=== PATIENT | male | born 1985 | race Two or more races ===

== ENCOUNTER 2024-10-18 10:30 | Inpatient (IN) | payer OTHER ==
[~2024-10-18] VITALS: Ht 61 cm; Wt 111.1 kg
[2024-10-18 14:07] VITALS: BP 134/89
[2024-10-27] MEDS ORDERED: METRONIDAZOLE/SODIUM CHLORIDE 500 MG/100 ML PIGGYBACK IV ONE ×2 (08:36→11:00)
[2024-10-27] MEDS ORDERED: CEFTRIAXONE SODIUM 2,000 MG VIAL ONE (08:36)
[2024-10-27 09:13] LABS: RH POSITIVE
[2024-10-27] MEDS ORDERED: BUPIVACAINE HCL/MPF 0.5% 30ML VIAL ONE (09:23)
[2024-10-27] MEDS ORDERED: CHLORHEXIDINE GLUCONATE 120 ML BOTTLE TOP ONE ×2 (09:23→11:00)
[2024-10-27] MEDS ORDERED: CEFTRIAXONE SODIUM 2,000 MG VIAL IV ONE (11:00)
[2024-10-27] MEDS ORDERED: BUPIVACAINE HCL 30 ML VIAL IJ ONE (11:00)
[2024-10-27] MEDS ORDERED: ACETAMINOPHEN 500 MG GEL..CAP PO SCH (19:53)
[2024-10-27] MEDS ORDERED: ONDANSETRON HCL 2 MG/ML VIAL IV PRN (20:00)
[2024-10-27] MEDS ORDERED: RINGERS SOLUTION,LACTATED 1,000 ML IV SCH (20:00)
[2024-10-27] MEDS ORDERED: MORPHINE SULFATE 4 MG/ML VIAL IV PRN (20:00)
[2024-10-27] MEDS ORDERED: OxyCODONE HCL 5 MG TABLET (ROXICODONE) PO PRN (20:00)
[2024-10-27] MEDS ORDERED: FAMOTIDINE/PF 20 MG/10 ML SYRINGE IV PUSH SCH (21:00)
[2024-10-27] MEDS ORDERED: MORPHINE SULFATE 2 MG/ML CARTRIDGE IV ONE (21:05)
[2024-10-27] MEDS ORDERED: MORPHINE SULFATE 4 MG/ML VIAL IV ONE (21:05)
[2024-10-27] MEDS ORDERED: GABAPENTIN 300 MG CAPSULE PO ONE (22:00)
[2024-10-27 23:09] LABS: BASO % 0.1 % (0.1-1.2); EOS # 0.00 (0.04-0.54); EOS % 0.0 % (0.7-7.0); LYMPH # 1.17 (1.18-3.74); LYMPH % 8.5 % (19.3-53.1); MEAN PLATELET VOLUME 10.40 fl (9.4-12.4); MONO # 1.42 (0.24-0.82); MONO % 10.3 % (4.7-12.5); NEUT # 11.13 (1.56-6.13); NEUT % 80.7 % (34.0-71.1); RED CELL DISTRIBUTION WIDTH 13.5 % (11.6-14.4)
[2024-10-27 23:16] LABS: GLUCOSE FASTING 145.0 mg/dL (65-100); OSMOLALITY SERUM 285.0 MOSM/KG (275-295)
[2024-10-27 23:18] LABS: BUN CREA RATIO 11.0 (7.0-25.0); CREATININE SERUM 0.94 mg/dL (0.70-1.30); GFR 88.88
[2024-10-28] MEDS ORDERED: GABAPENTIN 300 MG CAPSULE PO SCH (01:00)
[2024-10-28 07:57] LABS: BUN CREA RATIO 10.0 (7.0-25.0); CREATININE SERUM 0.7 mg/dL (0.70-1.30); GFR 124.9; GLUCOSE FASTING 108.0 mg/dL (65-100); OSMOLALITY SERUM 280.0 MOSM/KG (275-295)
[2024-10-28 07:58] LABS: BASO % 0.3 % (0.1-1.2); EOS # 0.00 (0.04-0.54); EOS % 0.0 % (0.7-7.0); LYMPH # 1.70 (1.18-3.74); LYMPH % 14.7 % (19.3-53.1); MEAN PLATELET VOLUME 11.00 fl (9.4-12.4); MONO # 1.75 (0.24-0.82); NEUT # 8.10 (1.56-6.13); NEUT % 69.7 % (34.0-71.1); RED CELL DISTRIBUTION WIDTH 13.5 % (11.6-14.4)
[2024-10-28 08:22] LABS: MONO % 15.1 % (4.7-12.5)
[2024-10-28] MEDS ORDERED: LACTOBACILLUS ACIDOPHILUS 1 CAP CAP PO SCH (09:00)
[2024-10-28] MEDS ORDERED: POLYETHYLENE GLYCOL 3350 17 GM BLIST.PACK PO SCH (09:00)
[2024-10-28] MEDS ORDERED: MAGNESIUM CHLORIDE 70 MG TABLET.DR PO SCH (09:00)
[2024-10-28] MEDS ORDERED: HYOSCYAMINE SULFATE 0.125 MG TAB.SUBL SL SCH (09:00)
[2024-10-28 09:24] VITALS: BP 126/80; O2SAT 95
[2024-10-28] MEDS ORDERED: MORPHINE SULFATE 4 MG,MORPHINE SULFATE 2 MG IV PRN (09:30)
[2024-10-28 16:00] VITALS: BP 128/79; O2SAT 95
[2024-10-28] MEDS ORDERED: ENOXAPARIN SODIUM 40 MG/0.4 ML SYRINGE SUBCUTANEO SCH (17:00)
[2024-10-28] MEDS ORDERED: POTASSIUM PHOS,M-BASIC-D-BASIC 15 MM in 0.9 % SODIUM CHLORIDE 250 ML IV ONE (18:15)
[2024-10-28] MEDS ORDERED: MAGNESIUM SULFATE 50% 1,000 MG/2 ML VIAL IV ONE (18:15)
[2024-10-29 00:43] VITALS: BP 118/73; O2SAT 98
[2024-10-29 08:04] VITALS: BP 133/87; O2SAT 96
[2024-10-29 08:15] LABS: BASO % 0.4 % (0.1-1.2); EOS # 0.08 (0.04-0.54); EOS % 0.7 % (0.7-7.0); LYMPH # 1.77 (1.18-3.74); LYMPH % 16.5 % (19.3-53.1); MEAN PLATELET VOLUME 11.20 fl (9.4-12.4); MONO # 1.64 (0.24-0.82); NEUT # 7.16 (1.56-6.13); NEUT % 66.7 % (34.0-71.1); RED CELL DISTRIBUTION WIDTH 14.1 % (11.6-14.4)
[2024-10-29 08:16] LABS: MONO % 15.3 % (4.7-12.5)
[2024-10-29 09:00] LABS: BUN CREA RATIO 8.0 (7.0-25.0); CREATININE SERUM 0.66 mg/dL (0.70-1.30); GFR 133.68; GLUCOSE FASTING 102.0 mg/dL (65-100); OSMOLALITY SERUM 273.0 MOSM/KG (275-295)
[2024-10-29] MEDS ORDERED: NAPH,MB-DB/K PH,MBDB 1 PKT PACKET PO SCH ×2 (09:00→19:10)
[2024-10-29] MEDS ORDERED: POTASSIUM PHOS,M-BASIC-D-BASIC 3 MM/ML VIAL IV NR ×2 (14:00→18:00)
[2024-10-29 16:50] VITALS: BP 127/84; O2SAT 96
[2024-10-30 00:39] VITALS: BP 135/83; O2SAT 100
[2024-10-30 06:42] LABS: BASO % 0.5 % (0.1-1.2); EOS # 0.22 (0.04-0.54); EOS % 2.5 % (0.7-7.0); LYMPH # 1.98 (1.18-3.74); LYMPH % 22.5 % (19.3-53.1); MEAN PLATELET VOLUME 10.40 fl (9.4-12.4); MONO # 1.37 (0.24-0.82); NEUT # 5.15 (1.56-6.13); NEUT % 58.6 % (34.0-71.1); RED CELL DISTRIBUTION WIDTH 13.8 % (11.6-14.4)
[2024-10-30 06:56] LABS: MONO % 15.6 % (4.7-12.5)
[2024-10-30 07:13] LABS: BUN CREA RATIO 8.0 (7.0-25.0); CREATININE SERUM 0.52 mg/dL (0.70-1.30); GFR 176.02; GLUCOSE FASTING 99.0 mg/dL (65-100); OSMOLALITY SERUM 284.0 MOSM/KG (275-295)
[2024-10-30] MEDS ORDERED: MAGNESIUM SULFATE IN WATER 2 GM/50 ML PIGGYBAG IV NR (08:00)
[2024-10-30 08:17] VITALS: BP 118/79; O2SAT 95
[2024-10-30] MEDS ORDERED: PIPERACILLIN/TAZOBACTAM SODIUM 3.375 GM VIAL IV STA (11:14)
[2024-10-30 16:00] VITALS: BP 121/71; O2SAT 97
[2024-10-30] MEDS ORDERED: PIPERACILLIN/TAZOBACTAM SODIUM 3.375 GM VIAL IV SCH (18:00)
[2024-10-31 01:27] VITALS: BP 129/75; O2SAT 98
[2024-10-31 08:00] VITALS: BP 124/78; O2SAT 95
[2024-10-31 08:42] LABS: BASO % 0.7 % (0.1-1.2); EOS # 0.29 (0.04-0.54); EOS % 3.2 % (0.7-7.0); LYMPH # 2.36 (1.18-3.74); LYMPH % 26.2 % (19.3-53.1); MEAN PLATELET VOLUME 10.10 fl (9.4-12.4); MONO # 1.36 (0.24-0.82); NEUT # 4.89 (1.56-6.13); NEUT % 54.2 % (34.0-71.1); RED CELL DISTRIBUTION WIDTH 13.9 % (11.6-14.4)
[2024-10-31 08:54] LABS: MONO % 15.1 % (4.7-12.5)
[2024-10-31 09:08] LABS: ERYTHROCYTE SEDIMENTATION RATE 62 mm/hr (0-15)
[2024-10-31 09:12] LABS: BUN CREA RATIO 8.0 (7.0-25.0); CREATININE SERUM 0.65 mg/dL (0.70-1.30); GFR 136.05; GLUCOSE FASTING 87.0 mg/dL (65-100); OSMOLALITY SERUM 282.0 MOSM/KG (275-295)
[2024-10-31 17:00] VITALS: BP 152/89; O2SAT 95
[2024-10-31] MEDS ORDERED: LINEZOLID 600 MG TABLET PO SCH (17:00)
[2024-10-31] MEDS ORDERED: LACTOBACILLUS ACIDOPHILUS 1 CAP CAP PO SCH (17:00)
[2024-11-01 00:49] VITALS: BP 107/65; O2SAT 96
[2024-11-01 08:00] VITALS: BP 122/80; O2SAT 95
[2024-11-01] MEDS ORDERED: OxyCODONE HCL 5 MG TABLET (ROXICODONE) PO PRN (12:30)
[2024-11-01] MEDS ORDERED: MORPHINE SULFATE 4 MG/ML CARTRIDGE IV PRN (12:30)
[2024-11-01 16:00] VITALS: BP 122/87; O2SAT 96
[2024-11-02 01:28] VITALS: BP 121/78; O2SAT 100
[2024-11-02 08:40] VITALS: BP 125/79; O2SAT 98
[2024-11-02 16:00] VITALS: BP 115/83; O2SAT 95
[2024-11-03 00:52] VITALS: BP 133/77; O2SAT 96
[2024-11-03 07:35] LABS: BASO % 0.8 % (0.1-1.2); EOS # 0.35 (0.04-0.54); EOS % 3.8 % (0.7-7.0); LYMPH # 1.83 (1.18-3.74); LYMPH % 19.9 % (19.3-53.1); MEAN PLATELET VOLUME 10.10 fl (9.4-12.4); MONO # 1.41 (0.24-0.82); NEUT # 5.46 (1.56-6.13); NEUT % 59.3 % (34.0-71.1); RED CELL DISTRIBUTION WIDTH 13.6 % (11.6-14.4)
[2024-11-03 07:41] LABS: MONO % 15.3 % (4.7-12.5)
[2024-11-03 08:00] LABS: ALT/SGPT 73.0 U/L (12-78); AST/SGOT 53.0 U/L (15-37); BILIRUBIN TOTAL 0.59 mg/dL (0.3-1.2); BILIRUBIN,CONJUGATED 0.23 mg/dL (0.0-0.2); BUN CREA RATIO 9.0 (7.0-25.0); CREATININE SERUM 0.82 mg/dL (0.70-1.30); GFR 104.06; GLUCOSE FASTING 87.0 mg/dL (65-100); OSMOLALITY SERUM 275.0 MOSM/KG (275-295)
[2024-11-03 08:34] VITALS: BP 110/73; O2SAT 95
[2024-11-03] MEDS ORDERED: MUPIROCIN 22 GM OINT..GM TUBE NASAL SCH (13:00)
[2024-11-03 17:48] VITALS: BP 133/89; O2SAT 97
== END 2024-11-03 18:52 | disposition home or self-care (01) | DRG 330 ==
LOC: O/R 10-27 05:51 → SURH 10-27 08:45
PROVIDERS: Urology; ADMIT Colon & Rectal Surgery; ATTEND Colon & Rectal Surgery
PROC: 0TQB4ZZ Repair Bladder, Percutaneous Endoscopic Approach (ICD-10-PCS; 2024-10-27)
PROC: 0DJD8ZZ Inspection of Lower Intestinal Tract, Via Natural or Artificial Opening Endoscopic (ICD-10-PCS; 2024-10-27)
PROC: 0W9F4ZZ Drainage of Abdominal Wall, Percutaneous Endoscopic Approach (ICD-10-PCS; 2024-10-27)
PROC: 0T784DZ Dilation of Bilateral Ureters with Intraluminal Device, Percutaneous Endoscopic Approach (ICD-10-PCS; 2024-10-27)
PROC: 0DTN4ZZ Resection of Sigmoid Colon, Percutaneous Endoscopic Approach (ICD-10-PCS; principal; 2024-10-27 08:45)
PROC: 0DBP4ZZ Excision of Rectum, Percutaneous Endoscopic Approach (ICD-10-PCS; 2024-10-27 08:45)
DX: K57.20 Diverticulitis of large intestine with perforation and abscess without bleeding (principal); K55.1 Chronic vascular disorders of intestine; N99.72 Accidental puncture and laceration of a genitourinary system organ or structure during other procedure; N32.1 Vesicointestinal fistula; T81.41XA Infection following a procedure, superficial incisional surgical site, initial encounter; L03.311 Cellulitis of abdominal wall; Y65.8 Other specified misadventures during surgical and medical care

== ENCOUNTER 2024-10-25 08:48 | Day surgery (SDC) | payer OTHER ==
[2024-10-25] MEDS ORDERED: MIDAZOLAM HCL 2 MG/2 ML VIAL IV ONE (12:45)
[2024-10-25] MEDS ORDERED: ONDANSETRON HCL 2 MG/ML VIAL IV ONE (12:45)
[2024-10-25] MEDS ORDERED: DIPHENHYDRAMINE HCL 50 MG/ML VIAL 1ML IV ONE (12:45)
[2024-10-25] MEDS ORDERED: fentaNYL CITRATE 50 MCG/ML AMPUL IV PUSH ONE (12:45)
== END 2024-10-25 13:50 | disposition home or self-care (01) ==
LOC: AMB-ENDOS 08:48
PROVIDERS: ATTEND Colon & Rectal Surgery
DX: D12.8 Benign neoplasm of rectum (principal); D12.0 Benign neoplasm of cecum; D12.5 Benign neoplasm of sigmoid colon; K57.32 Diverticulitis of large intestine without perforation or abscess without bleeding; K57.20 Diverticulitis of large intestine with perforation and abscess without bleeding; R19.4 Change in bowel habit; Z12.11 Encounter for screening for malignant neoplasm of colon

== ENCOUNTER 2024-11-05 14:51 | Emergency (ER) | payer OTHER ==
[~2024-11-05] VITALS: Ht 188 cm; Wt 107.0 kg
[2024-11-05] MEDS ORDERED: MACROBID 100 M100 MG (15:25)
[2024-11-05] MEDS ORDERED: NEURONTIN300 MG PO (15:25)
[2024-11-05] MEDS ORDERED: PERCOCET 5-3251 EACH (15:25)
[2024-11-05] MEDS ORDERED: MAGNESIUM100 MG PO (15:26)
[2024-11-05] MEDS ORDERED: ZYVOX 600600 MG/300 PO (15:26)
[2024-11-05] MEDS ORDERED: 0.9 % SODIUM CHLORIDE 1,000 ML IV SCH (16:00)
[2024-11-05 16:39] LABS: BASO % 0.6 % (0.1-1.2); EOS # 0.20 (0.04-0.54); EOS % 2.4 % (0.7-7.0); LYMPH # 1.99 (1.18-3.74); LYMPH % 24.4 % (19.3-53.1); MEAN PLATELET VOLUME 9.40 fl (9.4-12.4); MONO # 1.14 (0.24-0.82); NEUT # 4.71 (1.56-6.13); NEUT % 57.6 % (34.0-71.1); RED CELL DISTRIBUTION WIDTH 14.0 % (11.6-14.4)
[2024-11-05 16:42] LABS: MONO % 14.0 % (4.7-12.5)
[2024-11-05 16:52] LABS: BUN CREA RATIO 11.0 (7.0-25.0); CREATININE SERUM 0.89 mg/dL (0.70-1.30); GFR 94.67; GLUCOSE FASTING 112.0 mg/dL (65-100); OSMOLALITY SERUM 279.0 MOSM/KG (275-295)
[2024-11-05 17:15] LABS: URINE APPEARANCE Cloudy; URINE BILIRRUBIN Negative (NEGATIVE); URINE BLOOD Large; URINE COLOR Dark Yellow; URINE GLUCOSE Negative (NEGATIVE); URINE KETONE Trace (NEGATIVE); URINE LEUKOCYTE Negative; URINE NITRATE Negative; URINE PROTEIN 30 (NEGATIVE); URINE UROBILINOGEN 0.2 E.U./dl
[2024-11-05 17:19] LABS: URINE BACTERIA 69.5 uL (0.0-1933); URINE CAST 2.63 uL (0.0-1.40); URINE EPITHELIAL CELLS 15.5 uL (0.0-38.8); URINE RBC 538.1 uL (0.0-20.8); URINE WBC 10.1 uL (0.0-23.2)
[2024-11-05 17:42] LABS: URINE CRYSTALS MODERATE /HPF; URINE MUCUS HEAVY
== END 2024-11-05 20:18 | disposition home or self-care (01) ==
LOC: ER 15:08
PROVIDERS: Emergency Medicine
DX: T83.098D Other mechanical complication of other urinary catheter, subsequent encounter (principal); Y92.89 Other specified places as the place of occurrence of the external cause

== ENCOUNTER 2024-11-07 01:54 | Emergency (ER) | payer OTHER ==
[~2024-11-07] VITALS: Ht 188 cm; Wt 107.0 kg
[~2024-11-07 01:54] MED LIST: MACROBID 100 M100 MG; MAGNESIUM100 MG PO; NEURONTIN300 MG PO; PERCOCET 5-3251 EACH; ZYVOX 600600 MG/300 PO
[2024-11-07] MEDS ORDERED: LINEZOLID600 MG (02:09)
[2024-11-07] MEDS ORDERED: PERCOCET 10-321 EACH (02:09)
[2024-11-07] MEDS ORDERED: MAGNESIUM500 MG (02:10)
[2024-11-07 05:21] LABS: URINE APPEARANCE Cloudy; URINE BILIRRUBIN Negative (NEGATIVE); URINE BLOOD Large; URINE COLOR Yellow; URINE GLUCOSE Negative (NEGATIVE); URINE KETONE Negative (NEGATIVE); URINE LEUKOCYTE Small; URINE NITRATE Negative; URINE PROTEIN 30 (NEGATIVE); URINE UROBILINOGEN 0.2 E.U./dl
[2024-11-07 05:26] LABS: URINE BACTERIA 884.3 uL (0.0-1933); URINE CAST 1.46 uL (0.0-1.40); URINE EPITHELIAL CELLS 5.2 uL (0.0-38.8); URINE RBC 4722.0 uL (0.0-20.8); URINE WBC 185.8 uL (0.0-23.2)
== END 2024-11-07 06:18 | disposition home or self-care (01) ==
LOC: ER 01:54
DX: T83.098A Other mechanical complication of other urinary catheter, initial encounter (principal)

== ENCOUNTER 2024-11-09 19:54 | Inpatient (IN) | payer OTHER ==
[~2024-11-09] VITALS: Ht 188 cm; Wt 107.0 kg
[~2024-11-09 19:54] MED LIST changes: +LINEZOLID600 MG; +MAGNESIUM500 MG; +PERCOCET 10-321 EACH
[2024-11-09] MEDS ORDERED: CEFTRIAXONE SODIUM 1,000 MG VIAL IM ONE (20:45)
[2024-11-09] MEDS ORDERED: TAMSULOSIN HCL 0.4 MG CAP PO ONE (20:45)
[2024-11-09] MEDS ORDERED: METHYLPREDNISOLONE SOD SUCC 40 MG VIAL IM ONE (20:45)
[2024-11-09] MEDS ORDERED: ACETAMINOPHEN 325 MG TABLET PO SCH (20:49)
[2024-11-09 21:28] LABS: BASO % 0.3 % (0.1-1.2); EOS # 0.04 (0.04-0.54); EOS % 0.2 % (0.7-7.0); LYMPH # 1.17 (1.18-3.74); LYMPH % 6.7 % (19.3-53.1); MEAN PLATELET VOLUME 9.80 fl (9.4-12.4); MONO # 1.61 (0.24-0.82); MONO % 9.2 % (4.7-12.5); NEUT # 14.53 (1.56-6.13); NEUT % 83.1 % (34.0-71.1); RED CELL DISTRIBUTION WIDTH 13.9 % (11.6-14.4)
[2024-11-09 21:30] LABS: URINE APPEARANCE Cloudy; URINE BILIRRUBIN Negative (NEGATIVE); URINE BLOOD Large; URINE COLOR Yellow; URINE GLUCOSE Negative (NEGATIVE); URINE KETONE Trace (NEGATIVE); URINE LEUKOCYTE Large; URINE NITRATE Positive; URINE UROBILINOGEN 0.2 E.U./dl
[2024-11-09 21:34] LABS: URINE CAST 5.27 uL (0.0-1.40); URINE EPITHELIAL CELLS 2.9 uL (0.0-38.8); URINE RBC 2884.1 uL (0.0-20.8); URINE WBC 2469.8 uL (0.0-23.2)
[2024-11-09 21:52] LABS: ALT/SGPT 70.0 U/L (12-78); AST/SGOT 36.0 U/L (15-37); BUN CREA RATIO 12.0 (7.0-25.0); CREATININE SERUM 0.89 mg/dL (0.70-1.30); GFR 94.67; GLUCOSE FASTING 115.0 mg/dL (65-100); OSMOLALITY SERUM 276.0 MOSM/KG (275-295)
[2024-11-09 21:55] LABS: BILIRUBIN TOTAL 0.39 mg/dL (0.3-1.2); GLOBULINA 4.8 G/DL (2.4-3.5)
[2024-11-09 21:56] LABS: TYPE CELLS SQUAMOUS; URINE BACTERIA > 9821.5 uL (0.0-1933); URINE CRYSTALS FEW /HPF; URINE PROTEIN 100 (NEGATIVE)
[2024-11-09 21:57] LABS: URINE MUCUS MODERATE
[2024-11-09] MEDS ORDERED: ACETAMINOPHEN 500 MG GEL..CAP PO PRN (23:00)
[2024-11-09] MEDS ORDERED: 0.9 % SODIUM CHLORIDE 1,000 ML IV SCH (23:00)
[2024-11-09] MEDS ORDERED: KETOROLAC TROMETHAMINE 15 MG VIAL IU ONE (23:00)
[2024-11-09] MEDS ORDERED: ONDANSETRON HCL 4 MG in 0.9 % SODIUM CHLORIDE 50 ML IV PRN (23:00)
[2024-11-10] MEDS ORDERED: PIPERACILLIN/TAZOBACTAM SODIUM 3.375 GM in DEXTROSE 5 % IN WATER 100 ML IV SCH
[2024-11-10 00:50] LABS: INR 1.08
[2024-11-10 01:47] VITALS: BP 101/65; O2SAT 97
[2024-11-10] MEDS ORDERED: ENOXAPARIN SODIUM 40 MG/0.4 ML SYRINGE SUBCUTANEO SCH (09:00)
[2024-11-10] MEDS ORDERED: FAMOTIDINE/PF 20 MG in 0.9 % SODIUM CHLORIDE 8 ML IV PUSH SCH (09:00)
[2024-11-10] MEDS ORDERED: FLUMAZENIL 0.5 MG/5 ML ML IV STA (13:20)
[2024-11-10] MEDS ORDERED: NALOXONE HCL 0.4 MG/ML AMPUL IV STA (13:20)
[2024-11-10] MEDS ORDERED: fentaNYL CITRATE 50 MCG/ML AMPUL IV PUSH ONE (13:30)
[2024-11-10] MEDS ORDERED: ONDANSETRON HCL 2 MG/ML VIAL IV ONE (13:30)
[2024-11-10] MEDS ORDERED: DIPHENHYDRAMINE HCL 50 MG/ML VIAL 1ML IV ONE (13:30)
[2024-11-10] MEDS ORDERED: MIDAZOLAM HCL 2 MG/2 ML VIAL IV ONE (13:30)
[2024-11-10 16:00] VITALS: BP 125/81; O2SAT 97
[2024-11-10] MEDS ORDERED: MEROPENEM 500 MG/VIAL VIAL IV SCH (18:00)
[2024-11-10] MEDS ORDERED: MAGNESIUM CHLORIDE 70 MG TABLET.DR PO SCH (20:30)
[2024-11-10] MEDS ORDERED: OxyCODONE HCL 5 MG TABLET (ROXICODONE) PO PRN (20:30)
[2024-11-10] MEDS ORDERED: GABAPENTIN 300 MG CAPSULE PO SCH (21:00)
[2024-11-10 23:58] VITALS: BP 110/76; O2SAT 99
[2024-11-11 08:36] LABS: BASO % 0.6 % (0.1-1.2); EOS # 0.08 (0.04-0.54); EOS % 0.6 % (0.7-7.0); LYMPH # 2.38 (1.18-3.74); LYMPH % 16.4 % (19.3-53.1); MEAN PLATELET VOLUME 10.10 fl (9.4-12.4); MONO # 1.98 (0.24-0.82); MONO % 13.6 % (4.7-12.5); NEUT # 9.96 (1.56-6.13); NEUT % 68.4 % (34.0-71.1); RED CELL DISTRIBUTION WIDTH 14.6 % (11.6-14.4)
[2024-11-11 09:01] VITALS: BP 127/82; O2SAT 98
[2024-11-11 09:21] LABS: ALT/SGPT 67.0 U/L (12-78); AST/SGOT 36.0 U/L (15-37); BILIRUBIN TOTAL 0.47 mg/dL (0.3-1.2); BUN CREA RATIO 13.0 (7.0-25.0); CREATININE SERUM 1.01 mg/dL (0.70-1.30); GFR 81.81; GLOBULINA 4.0 G/DL (2.4-3.5); GLUCOSE FASTING 78.0 mg/dL (65-100); OSMOLALITY SERUM 286.0 MOSM/KG (275-295)
[2024-11-11 15:00] VITALS: BP 124/82; O2SAT 18
[2024-11-11] MEDS ORDERED: CLOTRIMAZOLE 30 GM TUBE TOP SCH (17:00)
[2024-11-12 00:30] VITALS: BP 105/68; O2SAT 98
[2024-11-12 08:00] VITALS: BP 112/65; O2SAT 96
[2024-11-12 08:12] LABS: BASO % 0.7 % (0.1-1.2); EOS # 0.15 (0.04-0.54); EOS % 1.6 % (0.7-7.0); LYMPH # 1.96 (1.18-3.74); LYMPH % 20.4 % (19.3-53.1); MEAN PLATELET VOLUME 10.30 fl (9.4-12.4); MONO # 1.56 (0.24-0.82); NEUT # 5.80 (1.56-6.13); NEUT % 60.4 % (34.0-71.1); RED CELL DISTRIBUTION WIDTH 14.0 % (11.6-14.4)
[2024-11-12 08:54] LABS: MONO % 16.3 % (4.7-12.5)
[2024-11-12 11:48] LABS: URINE APPEARANCE Clear; URINE BILIRRUBIN Negative (NEGATIVE); URINE BLOOD Moderate; URINE COLOR Yellow; URINE GLUCOSE Negative (NEGATIVE); URINE KETONE Negative (NEGATIVE); URINE LEUKOCYTE Moderate; URINE NITRATE Positive; URINE PROTEIN 30 (NEGATIVE); URINE UROBILINOGEN 0.2 E.U./dl
[2024-11-12 11:52] LABS: URINE BACTERIA 407.9 uL (0.0-1933); URINE EPITHELIAL CELLS 16.4 uL (0.0-38.8); URINE RBC 234.9 uL (0.0-20.8); URINE WBC 486.1 uL (0.0-23.2)
[2024-11-12 12:07] LABS: TYPE CELLS RENAL TUBULAR; URINE CAST 0.00 uL (0.0-1.40)
[2024-11-12 15:00] VITALS: BP 121/80; O2SAT 98
[2024-11-13 01:08] VITALS: BP 105/66; O2SAT 97
[2024-11-13 08:34] VITALS: BP 127/85; O2SAT 96
[2024-11-13 16:00] VITALS: BP 118/77; O2SAT 97
[2024-11-14 08:00] VITALS: BP 143/91; O2SAT 98
[2024-11-14] MEDS ORDERED: MAGNESIUM CHLORIDE 70 MG TABLET.DR PO SCH (10:08)
[2024-11-15 08:00] VITALS: BP 134/80; O2SAT 98
[2024-11-15 16:00] VITALS: BP 128/84; O2SAT 96
[2024-11-15] MEDS ORDERED: TOBRAMYCIN SULFATE 40 MG/ML VIAL IV ONE (21:30)
[2024-11-15 23:38] LABS: URINE APPEARANCE Clear; URINE BILIRRUBIN Negative (NEGATIVE); URINE BLOOD Trace; URINE COLOR Yellow; URINE GLUCOSE Negative (NEGATIVE); URINE KETONE Negative (NEGATIVE); URINE LEUKOCYTE Negative; URINE NITRATE Negative; URINE PROTEIN Negative (NEGATIVE); URINE UROBILINOGEN 0.2 E.U./dl
[2024-11-15 23:39] LABS: URINE BACTERIA 5.9 uL (0.0-1933); URINE RBC 4.8 uL (0.0-20.8); URINE WBC 2.6 uL (0.0-23.2)
[2024-11-15 23:46] LABS: URINE CAST 0.00 uL (0.0-1.40); URINE EPITHELIAL CELLS 0.3 uL (0.0-38.8)
[2024-11-16] MEDS ORDERED: MEROPENEM 1,000 MG VIAL IV SCH (01:00)
[2024-11-16 01:47] VITALS: BP 126/77; O2SAT 97
[2024-11-16 08:44] LABS: BASO % 1.3 % (0.1-1.2); EOS # 0.23 (0.04-0.54); EOS % 3.7 % (0.7-7.0); LYMPH # 2.63 (1.18-3.74); LYMPH % 42.1 % (19.3-53.1); MEAN PLATELET VOLUME 9.50 fl (9.4-12.4); MONO # 1.06 (0.24-0.82); NEUT # 2.13 (1.56-6.13); NEUT % 34.1 % (34.0-71.1); RED CELL DISTRIBUTION WIDTH 13.6 % (11.6-14.4)
[2024-11-16 09:17] LABS: MONO % 17.0 % (4.7-12.5)
[2024-11-16 09:33] LABS: BUN CREA RATIO 9.0 (7.0-25.0); CREATININE SERUM 0.81 mg/dL (0.70-1.30); GFR 105.54; GLUCOSE FASTING 93.0 mg/dL (65-100); OSMOLALITY SERUM 277.0 MOSM/KG (275-295)
[2024-11-16 10:22] VITALS: BP 138/84; O2SAT 99
[2024-11-16 16:00] VITALS: BP 130/90; O2SAT 98
[2024-11-17 09:48] VITALS: BP 119/77; O2SAT 97
[2024-11-17 16:46] VITALS: BP 119/68; O2SAT 99
[2024-11-18 01:23] VITALS: BP 105/69; O2SAT 96
[2024-11-18 08:00] VITALS: BP 142/92; O2SAT 98
== END 2024-11-18 15:29 | disposition home or self-care (01) | DRG 690 ==
LOC: ER 19:57 → SURG 22:55
PROVIDERS: General Practice; Internal Medicine Infectious Disease; ADMIT Colon & Rectal Surgery; ATTEND Colon & Rectal Surgery
PROC: BW21ZZZ Computerized Tomography (CT Scan) of Abdomen and Pelvis (ICD-10-PCS; principal; 2024-11-09)
PROC: BW2GYZZ Computerized Tomography (CT Scan) of Pelvic Region using Other Contrast (ICD-10-PCS; 2024-11-12)
DX: N39.0 Urinary tract infection, site not specified (principal); T83.518A Infection and inflammatory reaction due to other urinary catheter, initial encounter; N32.1 Vesicointestinal fistula; B96.5 Pseudomonas (aeruginosa) (mallei) (pseudomallei) as the cause of diseases classified elsewhere